=== PATIENT | male | born 1980 | race Two or more races ===

== ENCOUNTER 2018-03-15 07:58 | Emergency (ER) | payer MEDICAID ==
[~2018-03-15] VITALS: Ht 172.7 cm; Wt 117.9 kg
[2018-03-15 08:06] VITALS: BP 152/88
[2018-03-15] MEDS ORDERED: Azithromycin 250mg tab ORAL ONE (08:45)
[2018-03-15] MEDS ORDERED: Lidocaine 1% MPF 10mg/ml 5ml INJ ONE (08:45)
[2018-03-15] MEDS ORDERED: CEPHALEXIN500 MG ORAL (08:53)
[2018-03-15 08:56] VITALS: BP 152/88
--- NOTE | 2018-03-15 08:57 | Emergency Room Report ---
History of Present Illness General Chief Complaint: Pain Source: Patient Present Illness HPI Patient presents with complaints of swelling to the left index finger reports that he noticed the area for the past several days As it was not improving he presents to the ER Pain is 3 out of 10 worse with touch denies any fevers or chills denies any chest pain or shortness of breath Patient also reports that he has been having some'tingling'sensation with urination Sensation of dribbling urine after finishing voiding Patient reports that he essentially active not 100% protected Denies any testicular pain denies any back or flank pain Allergies: Coded Allergies: No Known Allergies (Unverified , 03/15/18) Patient History Past Medical History: see triage record Pertinent Family History: none Reviewed Nursing Documentation: PMH: Agreed; PSxH: Agreed Nursing Documentation-PMH Past Medical History: No Stated History Review of Systems All Other Systems: negative except mentioned in HPI Physical Exam Vital Signs Date Time Temp Pulse Resp B/P (MAP) Pulse Ox O2 Delivery O2 Flow Rate FiO2 03/15/18 08:06 98.4 69 16 152/88 99 Room Air Sp02 EP Interpretation: reviewed, normal General Appearance: well appearing, no apparent distress Head: normocephalic, atraumatic Eyes: bilateral eye PERRL, bilateral eye EOMI ENT: hearing grossly normal, normal pharynx, TMs + canals normal, uvula midline Neck: full range of motion, supple, no meningismus, no bony tend Respiratory: lungs clear, normal breath sounds, no rhonchi, no respiratory distress, no retraction, no accessory muscle use Cardiovascular #1: normal peripheral pulses, regular rate, rhythm, no edema, no gallop, no JVD, no murmur Gastrointestinal: normal bowel sounds, non tender, soft, no mass, no organomegaly, non-distended, no guarding, no hernia, no pulsatile mass, no rebound Genitourinary: no CVA tenderness Musculoskeletal: swelling - Mild swelling at the right medial paronychia will region, no obvious pus sensation intact Neurologic: oriented x3, responsive, 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, motor strength/ tone normal, sensory intact Psychiatric: mood/affect normal Skin: palpation normal, other - As above Lymphatic: normal inspection, no adenopathy Medical Decision Making Diagnostic Impression: Primary Impression: Paronychia Additional Impression: Urethritis ER Course Patient's clinical exam is consistent with paronychia Appears fairly simple not able to be drained at this time Patient also has presentation consistent with urethritis Patient is referred for further specific testing to outpatient clinic however treatment is initiated in the ER and patient discharged in stable condition Last Vital Signs Date Time Temp Pulse Resp B/P (MAP) Pulse Ox O2 Delivery O2 Flow Rate FiO2 03/15/18 08:06 98.4 69 16 152/88 99 Room Air Status: improved Disposition: HOME, SELF-CARE Condition: Improved Scripts Cephalexin* (KEFLEX*) 500 Mg Capsule 500 MG ORAL EVERY 6 HOURS for 7 Days, CAP Prov: Carmelita Martinez DO 03/15/18 Patient Instructions: Urethritis, Adult, Paronychia, [id number] Additional Instructions: Patient is provided with the discharge instructions notified to follow up with primary doctor in the next 2-3 days otherwise return to the er with any worsening symptoms. Please note that this report is being documented using [employer] technology. This can lead to erroneous entry secondary to incorrect interpretation by the dictating instrument. Carmelita Martinez DO Mar 15, 2018 08:57
== END 2018-03-15 08:56 | disposition home or self-care (01) ==
LOC: EMR 08:20
DX: L03.012 Cellulitis of left finger (principal); N34.2 Other urethritis
CPT/HCPCS: 96372; 96374; 99283; J0696; Q0144